=== PATIENT | male | born 1965 | race Caucasian/White ===

== ENCOUNTER → 2016-05-18 | Outpatient (REF) ==
[~2016-05-18] MED LIST: AMBIEN 10MG10 MG PO; ASPIRIN 81M81 MG/TA2 PO; COUMADIN 5MG5 MG/TAB PO; LEVAQUIN 5500 MG/TA1 PO; LEVOXYL0.15 MG PO; LEXAPRO 10MG10 MG PO; LOVENOX120 MG/0.8 SC; MULTIPLE VITAMI1 CAP PO; NORCO 325 MG-7.1 TAB PO; PHENERGAN 25 TA25 MG PO; ROXICODONE 55 MG/TAB PO; TEGRETOL 2200 MG/TA1 PO; TYLENOL 325MG325 MG PO; VIIBRYD40 MG PO; VITAMIN C500 MG PO
[2016-05-18 17:11] LABS: PSA-TOTAL 1.16 ng/mL (0-4)
[2016-05-18 18:02] LABS: CARBAMAZEPINE (TEGRETOL) 7.1 ug/mL (4.0-12.0)
[2016-05-18 19:09] LABS: THYROID STIMULATING HORMONE 0.881 uIU/mL (0.465-4.680)
== END ==
LOC: ZLAB.WCH 16:01
PROVIDERS: Internal Medicine
DX: Z01.89 Encounter for other specified special examinations (principal)
CPT/HCPCS: G0103

== ENCOUNTER → 2017-06-02 | Outpatient (CLI) | payer BC | LOC: BHSO 09:01 | DX: Z01.818 Encounter for other preprocedural examination (principal) ==